=== PATIENT | male | born 1975 | race Hispanic/Latino ===

== ENCOUNTER 2025-05-14 22:42 | Emergency (ER) | payer SELFPAY ==
[2025-05-14 22:46] VITALS: BP 142/76
[2025-05-15 00:47] LABS: Glucose - Point of Care 360 mg/dl (70-99)
[2025-05-15 01:16] LABS: Hematocrit 40.6 % (39.0-52.0); Hemoglobin 13.8 g/dL (13.0-18.0); Mean Corp Hgb Conc. 34.0 g/dL (33.0-37.0); Mean Corpuscular Volume 85.7 fL (80.0-94.0); Nucleated Red Blood Cells % 0 % (-); Platelet Count 287 10^3/uL (130-400); Red Cell Dist. Width 12.9 % (11.5-14.5)
[2025-05-15 01:18] LABS: Urine Character Clear (Clear)
[2025-05-15 01:36] LABS: ALT (SGPT) 84 U/L (0-50); AST (SGOT) 39 U/L (17-59); Albumin 4.1 g/dl (3.5-5.0); Alkaline Phosphatase 202 U/L (38-126); Blood Urea Nitrogen 11 mg/dl (9-20); Calcium 8.9 mg/dl (8.4-10.2); Carbon Dioxide 26 mmol/L (22-30); Chloride 103 mmol/L (98-107); Glucose 388 mg/dl (70-99); Potassium 4.3 mmol/L (3.5-5.1); Sodium 136 mmol/L (135-145); Total Protein 6.8 g/dl (6.3-8.2); eGFR > 60.00
--- NOTE | 2025-05-15 02:25 | ED.GENMED ---
History of Present Illness
General
Chief Complaint: Male Genito-Urinary Symptoms
Source: patient
Exam Limitations: none (Primary language is Hungarian. 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
Time Seen by Provider: 05/15/25 00:24
Nursing documentation reviewed up to this point in time: agreed with
History of Present Illness
History of Present Illness:
This is a 50-year-old, primarily Hungarian-speaking gentleman who presents to the ED with complaints of penile rash, inflammation, burning that began 1 week ago.
Patient reports no past medical history, he lacks healthcare coverage but states he was evaluated by a private physician on Monday, 4 days ago, diagnosed with a fungal rash and prescribed an antifungal cream. Despite using this over the past 4
days, penile rash, inflammation persists. Patient states he paid $150 for physician office visit.
No history of similar episodes in the past and no close contacts with similar rash.
He is , reports monogamous relationship with his . He states his does not have similar rash.
He takes no medicines on a daily basis.
He does note some dysuria but denies urinary frequency nor urgency nor hematuria. He denies abdominal pain or back pain. He has not had a fever.
Past History
Past History
ED Past Medical History: None
ED Past Surgical History: None
Social History
Tobacco: Non-smoker
Alcohol: None
Drug: None
Personal:
Living: with family
Family History
Family History: Other (Noncontributory)
Phy Exam
Physical Exam
Physical Exam:
GENERAL: 50-year-old overweight male appears his stated age. Bright alert, pleasant, appears in no acute distress.
EYE: anicteric
NECK: Supple, nontender, no meningismus, no significant adenopathy.
ENT: posterior pharynx is clear, oral mucosa is moist. No rhinorrhea.
CARDIAC: Regular rate and rhythm. no murmur.
LUNGS: Clear breath sounds bilaterally, no acute respiratory distress, no wheezes/rales/rhonchi
ABDOMEN: Rotund, soft, nondistended, without focal tenderness, no r/g, no cvat. normoactive BS.
: Uncircumcised phallus. There is moderate focal inflammation, erythema to the distal foreskin. With effort, patient is able to retract his foreskin to reveal an erythematous glans penis with numerous superficial ulcerations that are exquisitely
tender to palpation.
NEUROLOGICAL: Alert and oriented x3, no focal neuro deficits. Gait is macario and steady.
SKIN: Warm and dry, normal color, skin intact. No rash.
MUSCULOSKELETAL: No C/C/E. peripheral pulses are full and equal b/l. No palpable tenderness.
PSYCH: Normal and appropriate interaction.
Course
Orders/Labs/Results
Orders:
Orders
05/15/25 01:02
Complete Blood Count/With Diff Urgent
Comprehensive Metabolic Panel Urgent
Herpes Culture Reflex - Typing Urgent
HUONG Source: Genital
Specimen Description:
Source:: THROAT/PHARYNX
Date Specimen was Collected: 05/15/25
Time Specimen was Collected: 00:56
Hgba1c [Glycohemoglobin (HgbA1c)] Urgent
Urinalysis Reflex To Culture Urgent
Date Specimen was Collected: 05/15/25
Time Specimen was Collected: 00:56
Chlamydia/GC by PCR Urgent
HUONG Source: Urine
Specimen Description:
Source:: URINE
Date Specimen was Collected: 05/15/25
Time Specimen was Collected: 00:56
Genital Culture Urgent
HUONG Source: Penis
Specimen Description:
Date Specimen was Collected: 05/15/25
Time Specimen was Collected: 00:56
05/15/25 02:36
Doxycycline [Vibramycin] 100 mg PO NOW STA
METFORMIN HCl [Glucophage] 500 mg PO NOW STA
05/15/25 02:37
Valacyclovir HCl [Valtrex] 1,000 mg PO NOW STA
05/15/25 03:02
Fluconazole [Diflucan] 200 mg PO NOW STA
Abnormal Lab Results
05/15/25 05/15/25 05/15/25
00:47 01:02 03:16
Absolute Monos (auto) 0.8 H 10^3/uL
(0.1-0.6)
Monocytes % 11.6 H %
(1.7-9.3)
Creatinine 0.6 L mg/dL
(0.7-1.3)
Glucose 388 H mg/dl
(70-99)
ALT 84 H U/L
(0-50)
Alkaline Phosphatase 202 H U/L
(38-126)
Urine Glucose 4+ A
(Negative)
POC Glucose 360 H mg/dl 269 H mg/dl
(70-99) (70-99)
05/15/25 01:02
05/15/25 01:02
Vital Signs
Initial and Last Documented VS:
Initial Vital Signs
Temp Pulse Resp BP Pulse Ox
98.0 F 84 18 142/76 99
05/14/25 22:46 05/14/25 22:46 05/14/25 22:46 05/14/25 22:46 05/14/25 22:46
Last Documented Vital Signs
Temp Pulse Resp BP Pulse Ox
98.6 F 56 16 106/69 97
05/15/25 03:18 05/15/25 03:18 05/15/25 03:18 05/15/25 03:18 05/15/25 03:18
MDM/Problems Addressed
Differential Diagnosis Includes:
The Differential Diagnosis includes, in no particular order and is not limited to:
1. Fungal dermatitis
2. Contact dermatitis
3. Bacterial infection
4. Candidiasis
5. Herpes simplex virus infection
6. Dermatitis due to poor hygiene or irritant exposure
7. Genital herpes
8. Lichen planus
9. Psoriasis
10. Balanitis due to diabetes or infection
MDM/Problems Addressed:
Acute balanitis
Patient lacks healthcare coverage, has been liking primary/preventative health care.
Initial exam concerning for candidal balanitis but there is note of painful superficial ulcerations thus must consider genital herpes as well as secondary bacterial infection.
Concern for potential underlying diabetes thus bedside Accu-Chek performed which is elevated at 360.
I highly suspect uom-ueqrzsv-tkpcyrssk diabetes which certainly puts patient at risk for candidal infection, secondary bacterial infection and must also consider STD/genital herpes.
Will check laboratory studies including hemoglobin A1c.
Genital culture obtained as well as viral/herpes culture.
Will check urinalysis as well as urine for GC chlamydia.
As patient lacks healthcare coverage, follow-up/referral to specialists will be a financial hardship. He does live in [facility]. Will refer to our free clinic for follow-up.
*Pulse Oximetry
SaO2: 99
Oxygen Mode of Delivery: Room air
Patient hypoxic: no
*Critical Care Note
Total Time (30-74mins, 75-104mins- exclusive of procedures): Not Applicable
Update Note
Update Note:
02:45
Labs reveal unremarkable CBC, normal white blood cell count.
Moderately elevated random glucose of 388 but no acidosis. Mildly elevated ALT and alkaline phosphatase.
Urinalysis is positive for glucose but no evidence of infection.
Genital cultures are pending.
Will give a one-time dose of Diflucan and recommend he continue topical antifungal cream.
Will initiate a course of Valtrex for potential genital herpes as well as doxycycline for potential bacterial balanitis.
Will initiate metformin 500 mg twice daily for spk-kdnddva-mvtomtwgi diabetes.
Patient has been referred to our free clinic for prompt follow-up.
ED Attending Note
-
Portions of this chart may have been created with voice recognition software.� Occasional wrong word or��sound alike� substitutions may have occurred due to the inherent limitations of voice recognition software.
Discharge Plan
Departure
Patient Disposition: Home (Routine Discharge)
Date of Disposition: 05/15/25
Time of Disposition: 02:43
Patient with high blood pressure during this ER visit?: No
Condition: Good
Discharge Problem:
Acute balanitis due to infection, New onset [id number] diabetes
Instructions: Treatment for type 2 diabetes, Diabetes and diet, Balanitis in adults
Prescriptions:
New
metformin 500 mg tablet
500 mg PO BID Qty: 60 0RF
valacyclovir [Valtrex] 1 gram tablet
1,000 mg PO BID Qty: 20 0RF
doxycycline hyclate 100 mg capsule
100 mg PO BID Qty: 14 0RF
Referrals:
[facility] - Call in 1-3 days for appt
UNKNOWN - PT DOES,NOT KNOW [Family Provider]
Interventions
Interventions:
*Risk Screen - Suicide Last Done: 05/15/25 01:12
*General Assessment Last Done: 05/14/25 22:46
*Neglect/Abuse Screening Last Done: 05/15/25 01:12
*ED- Fall Risk Assessment Last Done: 05/15/25 01:12
*ED COVID-19 Vaccine History Last Done: 05/15/25 01:12
*ED Influenza Vaccine History Last Done: 05/15/25 01:12
*Nursing Disposition Last Done: 05/15/25 03:18
ED-Male Genitourinary Assessment Last Done: 05/15/25 01:11
Discharge Date and Time
Discharge Date/Time: 05/15/25 03:28
Print Language: SWAZI
[2025-05-15] MEDS: GLUCOPHAGE 500 MG PO (03:12)
[2025-05-15] MEDS: DIFLUCAN 200 MG PO (03:12)
[2025-05-15] MEDS: VIBRAMYCIN 100 MG PO (03:13)
[2025-05-15] MEDS: VALTREX 1000 MG PO (03:13)
[2025-05-15 03:18] VITALS: BP 106/69
[2025-05-15 03:18] LABS: Glucose - Point of Care 269 mg/dl (70-99)
[2025-05-15 10:11] LABS: Glycohemoglobin (HgbA1c) 11.1 % (4.0-5.9)
== END 2025-05-15 03:28 | disposition home or self-care (01) ==
LOC: EMR 22:42
PROVIDERS: EMERGENCY PHYSICIAN Emergency Medicine
DX: N48.1 Balanitis (principal); E11.9 Type 2 diabetes mellitus without complications; Z79.84 Long term (current) use of oral hypoglycemic drugs; Z59.71 Insufficient health insurance coverage
CPT/HCPCS: 99283; 80053; 81003; 82962; 83036; 85025; 87070; 87255; 87491; 87591